=== PATIENT | male | born 1950 | race Two or more races ===

== ENCOUNTER 2018-02-19 23:11 | Emergency (ER) | payer OTHER ==
[~2018-02-19] VITALS: Ht 180.3 cm; Wt 81.6 kg
[2018-02-20] MEDS ORDERED: LOSARTAN POTASS50 MG PO (03:09)
== END 2018-02-20 03:24 | disposition home or self-care (01) ==
LOC: ER 23:11
DX: I10 Essential (primary) hypertension (principal)